=== PATIENT | female | born 1965 | race Native Hawaiian/Other Pacific Islander ===

== ENCOUNTER 2019-01-19 09:06 | Outpatient (CLI) | payer OTHER ==
--- NOTE | 2019-01-19 10:17 | XRay Report ---
LEFT SHOULDER, 3 VIEWS: History: Pain. Findings: No comparison. There is an approximate 2 cm calcification along the superior lateral border of the left humeral head. This may represent an avulsion fracture at the insertion site of the supraspinatus tendon. Calcific tendinosis could also be considered. The clavicle and scapula are intact. No joint pathology. Impression: Possible healing avulsion fracture along the lateral humeral head at the insertion site of the supraspinatus tendon. Chronic ligamentous calcifications could also be considered consistent with calcific tendinitis. Consider further evaluation with MRI IMPRESSION: Normal study.
== END 2019-01-19 09:07 | disposition home or self-care (01) ==
LOC: XRAY 09:06
PROVIDERS: ATTEND Psychiatry & Neurology Neurology
DX: M25.512 Pain in left shoulder (principal); I10 Essential (primary) hypertension; Z90.710 Acquired absence of both cervix and uterus; Z90.49 Acquired absence of other specified parts of digestive tract

== ENCOUNTER 2019-01-24 09:20 | Outpatient (CLI) | payer OTHER ==
--- NOTE | 2019-01-24 14:09 | Mammography Report ---
BONE DEXA:01/24/19 CLINICAL: Postmenopausal. History of a left shoulder fracture. COMPARISON: 03/30/13 TECHNIQUE: Two site bone DEXA performed on an Hologic scanner. FINDINGS: The average BMD of the lumbar spine L1-L4 is 0.808g/cm squared with a T-score of -2.2 and a Z-score of -1.2. This compares to 0.819 g/cm squared on the last exam and represents a -1.3% change in BMD. The average BMD of the left hip is 0.812g/cm squared with a T-score of -1.1 and a Z-score of -0.4.This compares to 0.858g/cm squared on the last exam and represents a -5.4% change in BMD. IMPRESSION: 1.WHO classification: Osteopenia with increased fracture risk based on the spine and left measurements. 2. A slight decline in spine BMD compared to to the prior exam and a more significant decline in left hip BMD compared to the prior exam. 3.The FRAX 10 year fracture probability for a major osteoporotic fracture is 3.1%. 4.The FRAX 10 year fracture probability for hip fracture is 0.3%. Note: FRAX version 3.01. Fracture probability calculated for an untreated patient. Fracture probability may be lower if the patient has received treatment. RECOMMENDATION: Clinical correlation and routine screening. DEFINITIONS: BMD = Bone Mineral Density T-score = BMD related to mean peak bone mass of young adult (mean expressed in Standard Deviation) Z-score = Age matched BMD expressed in SD World Health Organization (WHO) Diagnostic Criteria Normal T-score > -1 SD Osteopenia T-score between -1 and -2.4 SD Osteoporosis T-score -2.5 SD or below NOTE: BMD is not the only risk factor for fracture; also consider factors such as the patient's age, risk of falling, previous osteoporotic fracture, family history of osteoporotic fractures, current smoker, and low body weight. All treatment decisions require clinical judgment and consideration of individual patient factors, including patient preferences, comorbidities, previous drug use and wrist factors not captured in the FRAX model (e.g. frailty, falls, vitamin D deficiency, increased bone turnover, interval significant decline in BMD). Z-scores are not calculated if >80 years of age.
--- NOTE | 2019-01-24 15:00 | Mammography Report ---
BILATERAL DIGITAL SCREENING MAMMOGRAM with CAD: 01/24/19 09:20:00 CLINICAL: Routine screening. COMPARISON:10/02/15 FINDINGS: The breasts are almost entirely fatty. No mass, architectural distortion or suspicious calcifications. IMPRESSION: No mammographic evidence of malignancy. BI-RADS CATEGORY: 1 - - Negative RECOMMENDATION: Routine mammographic screening in one year. COMMENT: Patient follow-up letters are generated by our [employer] application.
--- NOTE | 2019-01-24 15:06 | XRay Report ---
CERVICAL SPINE, 5 views: History: Cervicalgia. Views of the cervical spine demonstrate normal bony alignment, vertebral height and interspace distances. Oblique views show patent foramina and normal apophyseal joint alignment. The prevertebral soft tissues are not thickened. Large bilateral cervical ribs are identified at C7 measuring 5-6 cm in length. IMPRESSION: Unremarkable cervical spine. No evidence for acute injury or significant degenerative changes. 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
== END 2019-01-24 09:21 | disposition home or self-care (01) ==
LOC: MAMMO 09:20
PROVIDERS: ATTEND Family Medicine
DX: Z12.31 Encounter for screening mammogram for malignant neoplasm of breast (principal); M85.88 Other specified disorders of bone density and structure, other site; M47.892 Other spondylosis, cervical region; I10 Essential (primary) hypertension; E78.5 Hyperlipidemia, unspecified; Z78.0 Asymptomatic menopausal state
CPT/HCPCS: 72050; 77067; 77080